=== PATIENT | male | born 1980 | race Caucasian/White ===

== ENCOUNTER 2019-09-16 19:20 | Emergency (ER) | payer SELFPAY ==
[2019-09-16 19:27] VITALS: BP 137/74
--- NOTE | 2019-09-16 19:36 | ER Document Report ---
HPI - HPI Time Seen by Provider: 09/16/19 19:30 Notes: Patient is an otherwise healthy 38-year-old male who presents the emergency department with request for clearance to return to work. Patient reports yesterday he had one episode of diarrhea and also had a stuffy nose and sneezed twice at work. Patient reports his employer will not allow him to come back to work with a work note. Patient reports he is completely asymptomatic, denies any nausea, vomiting, diarrhea currently. He has not had fever or cough. Past Medical History - General Information source: Patient - Social History Smoking Status: Never Smoker Frequency of alcohol use: None Drug Abuse: None Family History: Reviewed & Not Pertinent - Medical History Medical History: Negative Past Surgical History: Reports: Hx Orthopedic Surgery - Immunizations Hx Diphtheria, Pertussis, Tetanus Vaccination: Yes Vertical Provider Document - CONSTITUTIONAL Notes: PHYSICAL EXAMINATION: GENERAL: Well-appearing, well-nourished and in no acute distress. HEAD: Atraumatic, normocephalic. EYES: Pupils equal round extraocular movements intact, conjunctiva are normal. ENT: Nares patent NECK: Normal range of motion LUNGS: No respiratory distress Musculoskeletal: Normal range of motion NEUROLOGICAL: Normal speech, normal gait. PSYCH: Normal mood, normal affect. SKIN: Warm, Dry, normal turgor, no rashes or lesions noted. Course - Re-evaluation Re-evalutation: 09/16/19 19:38 Patient asymptomatic, requesting a work note. - Vital Signs Vital signs: Temp Pulse Resp BP Pulse Ox 98.2 F 90 16 137/74 H 95 09/16/19 19:25 09/16/19 19:25 09/16/19 19:25 09/16/19 19:25 09/16/19 19:25 Discharge - Discharge Clinical Impression: Sneezing Condition: Stable Disposition: HOME, SELF-CARE Additional Instructions: You are cleared to return to work tomorrow. Please continue to do good hand hygiene. Forms: Return to Work Referrals: TORO,NO [Primary Care Provider] - Follow up as needed
== END 2019-09-16 19:41 | disposition home or self-care (01) ==
LOC: ER 19:20
DX: R06.7 Sneezing (principal)
CPT/HCPCS: 99281